=== PATIENT | female | born 2005 ===

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

== ENCOUNTER 2025-01-04 23:43 | Emergency (ER) | payer SELFPAY ==
[2025-01-05] MEDS: Ketorolac 30 MG/ML SDV IVPUSH ONE (00:03)
[2025-01-05 00:11] LABS: BASOPHILS PERCENT AUTO 0.5 % (0.0-1.0); EOSINOPHILS PERCENT AUTO 1.3 % (1.0-3.0); LYMPHOCYTES PERCENT AUTO 18.1 % (20.5-50.1); MONOCYTES PERCENT AUTO 4.5 % (2-8); NEUTROPHILS PERCENT AUTO 75.6 % (42.2-75.2); PLATELET COUNT,PLT 372 10^3/uL (150-450); RED BLOOD CELL COUNT 4.48 10^6/uL (4.2-5.4); WHITE BLOOD CELL COUNT,WBC 13.2 10^3/uL (5.0-10.0)
[2025-01-05 00:26] LABS: A/G RATIO 1.2; ALANINE AMINOTRANSFERASE,ALT 19.0 U/L (14-59); ASPARTATE AMNIOTRANSFERASE,AST 14.0 U/L (15-37); BILIRUBIN TOTAL 0.2 mg/dL (0.2-1.0); BLOOD UREA NITROGEN,BUN 4.0 mg/dL (7-18); CARBON DIOXIDE,CO2 27.0 mmol/L (21-32); CHLORIDE,CL 104.0 mmol/L (98-107); CREATININE 0.76 mg/dL (0.55-1.02); EST CRCL DRUG DOSING (CG) 111.46 mL/min; ETHANOL BLOOD MEDICAL 133.0 mg/dL (0); GLUCOSE RANDOM 171.0 mg/dL (70-99); POTASSIUM,K 3.3 mmol/L (3.5-5.1); PROTEIN TOTAL,TP 7.8 g/dL (6.4-8.2); SODIUM,NA 147.0 mmol/L (136-145)
[2025-01-05 00:32] LABS: ESTIMATED GFR 116.0 mL/min (>=60)
[2025-01-05 00:40] LABS: APPEARANCE,URINE CLEAR (CLEAR); GLUCOSE,URINE NEGATIVE (NEGATIVE); OCCULT BLOOD,URINE NEGATIVE (NEGATIVE)
[2025-01-05] MEDS: Magnesium Sulfate 2 GM/50 mL 2 GM in Premix Bag 1 BAG IV ONE (00:40)
[2025-01-05 00:41] LABS: AMPHETAMINES,URINE NEGATIVE (NEGATIVE); BARBITURATES,URINE NEGATIVE (NEGATIVE); MDMA (ECSTASY), URINE NEGATIVE (NEGATIVE); METHAMPHETAMINES,URINE NEGATIVE (NEGATIVE); OPIATES,URINE NEGATIVE (NEGATIVE); OXYCODONE,URINE NEGATIVE (NEGATIVE); PHENCYCLIDINE,URINE NEGATIVE (NEGATIVE); TCA,URINE NEGATIVE (NEGATIVE)
[2025-01-05] MEDS: Ondansetron 4 MG/2 ML SDV IVPUSH ONE (00:50)
== END 2025-01-05 01:53 | disposition home or self-care (01) ==
LOC: DL.ED 23:43
DX: M62.838 Other muscle spasm (principal); E83.42 Hypomagnesemia; F10.929 Alcohol use, unspecified with intoxication, unspecified; E86.0 Dehydration; F17.200 Nicotine dependence, unspecified, uncomplicated; Z79.899 Other long term (current) drug therapy
CPT/HCPCS: 36415; 80053; 80305-QW; 80307; 81003; 81025; 83735; 85025; 96361; 96365; 96375; 99284; 99284-25; J1885; J2405; J3360; J3475; J7030